=== PATIENT | male | born 1955 | race Hispanic/Latino ===

== ENCOUNTER 2018-11-05 13:10 | Inpatient (IN) | payer BC ==
[~2018-11-05] VITALS: Ht 172.7 cm; Wt 95.2 kg
[2018-11-05 14:19] LABS: BASOPHILS % (AUTO) 0.4 % (0.0-5.0); EOSINOPHILS % (AUTO) 0.1 % (0.0-8.0); HEMATOCRIT 45.3 % (42-54); LYMPHOCYTES % (AUTO) 6.2 % (21.0-51.0); MEAN CORPUSCULAR HEMOGLOBIN 29.8 pg (27.0-33.0); MEAN CORPUSCULAR HGB CONC 33.4 g/dL (32.0-36.0); MEAN CORPUSCULAR VOLUME 89.1 fL (79-99); MONOCYTES % (AUTO) 6.2 % (3.0-13.0); NEUTROPHILS % (AUTO) 87.1 % (40.0-77.0); PLATELET COUNT (AUTO) 307 K/uL (130-400); RED BLOOD CELL COUNT(AUTO) 5.09 MIL/uL (4.50-6.20); RED CELL DISTRIBUTION WIDTH 13.1 % (11.0-15.5); WHITE BLOOD COUNT (AUTO) 12.7 K/uL (4.8-10.8)
[2018-11-05] MEDS ORDERED: ZOSYN 3.375GM+NS 50ML 50 ML IV ONE (14:24)
[2018-11-05] MEDS ORDERED: VANCOMYCIN 1GM+NS 250ML 500 ML IV ONE (14:24)
[2018-11-05 14:43] LABS: ALBUMIN 3.3 g/dL (3.5-5.0); BILIRUBIN,TOTAL 0.9 mg/dL (0.2-1.0); CREATININE 1.9 mg/dL (0.5-1.5); POTASSIUM 4.2 mmol/L (3.5-5.1); TOTAL PROTEIN, SERUM 8.5 g/dL (6.0-8.3)
[2018-11-05 14:43] LABS: APPEARANCE,URINE Clear (CLEAR); BILIRUBIN,URINE Negative (NEGATIVE); COLOR,URINE Yellow (YELLOW); GLUCOSE, URINE (UA) >=1000 mg/dL (NEGATIVE); KETONES,URINE Trace mg/dL (NEGATIVE); LEUKOCYTE ESTERASE ,URINE Negative (NEGATIVE); NITRATE,URINE Negative (NEGATIVE); OCCULT BLOOD,URINE Negative (NEGATIVE); PROTEIN,URINE POS 1+ mg/dL (NEGATIVE)
[2018-11-05 15:00] LABS: BACTERIA,URINE Rare /HPF (None Seen); MUCUS,URINE Few LPF (None Seen); SQUAMOUS EPITHELIAL CELL,UR 0-2 /HPF (0-2)
[2018-11-05] MEDS ORDERED: PHARMACY COMMUNICATION MISC SCH (15:30)
[2018-11-05] MEDS ORDERED: RENAL DOSE IV SCH (15:30)
[2018-11-05] MEDS ORDERED: ZOSYN 3.375GM+NS 50ML 50 ML IV SCH (16:00)
[2018-11-05] MEDS ORDERED: COMPOUND IV REFRIGERATED 1 EACH IVSOLN MISC PRN (17:00)
[2018-11-05] MEDS ORDERED: ACETAMINOPHEN EXTRA STRENGTH 500 MG TABLET ONE (20:33)
[2018-11-05] MEDS: ZOSYN 3.375GM+NS 50ML 50 ML IV SCH (21:00)
[2018-11-05 21:20] VITALS: BP 167/72
[2018-11-05] MEDS ORDERED: HYDRALAZINE HCL 20 MG/ML VIAL IV PRN (22:00)
[2018-11-05] MEDS ORDERED: HYDRALAZINE HCL 20 MG/ML VIAL ONE (22:03)
[2018-11-05] MEDS ORDERED: ACETAMINOPHEN 325 MG TAB PO PRN (22:15)
[2018-11-06] VITALS (23 sets, daily range): BP systolic 103–147; BP diastolic 61–97
[2018-11-06] MEDS ORDERED: AMLO5TAB9 PO (02:42)
[2018-11-06] MEDS ORDERED: LISI40TA4 PO (02:42)
[2018-11-06] MEDS ORDERED: SITA1TAB6 PO (02:42)
[2018-11-06] MEDS ORDERED: LOVA20TA3 PO (02:42)
[2018-11-06] MEDS: ZOSYN 3.375GM+NS 50ML 50 ML IV SCH ×3 (04:39→20:52)
[2018-11-06 05:48] LABS: HEMATOCRIT 40.9 % (42-54); MEAN CORPUSCULAR HEMOGLOBIN 30.2 pg (27.0-33.0); MEAN CORPUSCULAR HGB CONC 34.1 g/dL (32.0-36.0); MEAN CORPUSCULAR VOLUME 88.6 fL (79-99); PLATELET COUNT (AUTO) 315 K/uL (130-400); RED BLOOD CELL COUNT(AUTO) 4.62 MIL/uL (4.50-6.20); RED CELL DISTRIBUTION WIDTH 13.5 % (11.0-15.5); WHITE BLOOD COUNT (AUTO) 11.5 K/uL (4.8-10.8)
[2018-11-06 06:02] LABS: BASOPHILS % (MANUAL) 1 % (0-2); LYMPHOCYTES % (MANUAL) 13 % (22-44); MONOCYTES % (MANUAL) 10 % (2-9); SEGMENTED NEUTROPHILS % 76 % (40-70)
[2018-11-06 06:03] LABS: MAN.DIFF COMMENT-IMPRESSION MANUAL DIFFERENTIAL
[2018-11-06 06:11] LABS: CREATININE 1.6 mg/dL (0.5-1.5)
[2018-11-06] MEDS: INSULIN HUMULIN R 100 UNIT/ML 3ML SQ SCH ×4 (06:18→20:47)
[2018-11-06] MEDS ORDERED: MIDAZOLAM HCL 1 MG/ML 2ML VIAL ONE ×2 (07:55→08:24)
[2018-11-06] MEDS ORDERED: FENTANYL CITRATE PF 50 MCG/1 ML 2ML VIAL ONE (07:55)
[2018-11-06] MEDS ORDERED: BUPIVACAINE/PF 0.5% 30ML VIAL ONE (07:56)
[2018-11-06] MEDS ORDERED: LIDOCAINE HCL 1% 20 ML VIAL ONE (07:56)
[2018-11-06] MEDS ORDERED: VANCOMYCIN 1.25 GM in SODIUM CHLORIDE 0.9% 250 ML IV SCH (09:00)
--- NOTE | 2018-11-06 11:50 | NUR ---
paged dr. maxwell for the consult through answering service.
[2018-11-06] MEDS ORDERED: DIPH,PERTUSS(ACELL),TET VAC/PF 0.5 ML VIAL IM ONE (12:00)
--- NOTE | 2018-11-06 18:36 | NUR ---
D/C PLAN CM spoke to pt regarding d/c planning. Pt is ind. and lives alone. Denies any having any home health or provider services. CM explained possible need for shelter IV abx and wound care. Explained that MD may recommend placement at a facility. Member verbalized understanding and states he is agreeable to placement if ordered. Plan for now is LTAC vs SNF/rehab. CM to f/u. Addendum: 11/06/18 at 1838 by MOO RICHTER CM Amended: Links added.
[2018-11-06] MEDS: MORPHINE SULFATE 2 MG/ML 1ML SYG IVP PRN (18:44)
[2018-11-07] MEDS: MORPHINE SULFATE 2 MG/ML 1ML SYG IVP PRN ×3 (01:02→18:28)
[2018-11-07 03:00] VITALS: BP 131/71
[2018-11-07] MEDS: ZOSYN 3.375GM+NS 50ML 50 ML IV SCH ×3 (04:42→20:56)
[2018-11-07] MEDS: INSULIN HUMULIN R 100 UNIT/ML 3ML SQ SCH ×4 (06:09→21:07)
[2018-11-07 06:25] LABS: HEMATOCRIT 40.9 % (42-54); MEAN CORPUSCULAR HEMOGLOBIN 29.9 pg (27.0-33.0); MEAN CORPUSCULAR HGB CONC 33.3 g/dL (32.0-36.0); MEAN CORPUSCULAR VOLUME 89.9 fL (79-99); PLATELET COUNT (AUTO) 306 K/uL (130-400); RED BLOOD CELL COUNT(AUTO) 4.55 MIL/uL (4.50-6.20); RED CELL DISTRIBUTION WIDTH 13.3 % (11.0-15.5); WHITE BLOOD COUNT (AUTO) 11.8 K/uL (4.8-10.8)
[2018-11-07 06:51] LABS: CREATININE 1.6 mg/dL (0.5-1.5); POTASSIUM 4.2 mmol/L (3.5-5.1)
[2018-11-07 07:00] VITALS: BP 123/76
[2018-11-07 08:29] LABS: BAND NEUTROPHILS % (MANUAL) 1 % (0-2); LYMPHOCYTES % (MANUAL) 5 % (22-44); MAN.DIFF COMMENT-IMPRESSION MANUAL DIFFERENTIAL; MONOCYTES % (MANUAL) 7 % (2-9); PLATELET MORPHOLOGY COMMENT ADEQUATE; SEGMENTED NEUTROPHILS % 87 % (40-70)
[2018-11-07] MEDS ORDERED: VANCOMYCIN 1.25 GM in SODIUM CHLORIDE 0.9% 250 ML IV SCH (10:45)
[2018-11-07 11:00] VITALS: BP 140/82
[2018-11-07] MEDS ORDERED: VANCOMYCIN PROTOCOL PER PHARMACY IV SCH (13:15)
[2018-11-07] MEDS ORDERED: ENOXAPARIN SODIUM 30 MG/0.3 ML SQ SCH (14:15)
[2018-11-07 16:00] VITALS: BP 152/80
--- NOTE | 2018-11-07 16:53 | NUR ---
DR. ARNOLD ROUNDED AND SAW PATIENT. DISCUSSED THE PLAN OF CARE. HE VERBALIZED THAT HE WILL PUT ORDER FOR PERIPHERAL ANGIOGRAM.
[2018-11-07 20:00] VITALS: BP 148/70
[2018-11-07] MEDS: VANCOMYCIN 500MG+NS 100ML 100 ML IV SCH (20:56)
[2018-11-08] VITALS (16 sets, daily range): BP systolic 112–148; BP diastolic 61–74
[2018-11-08] MEDS: ZOSYN 3.375GM+NS 50ML 50 ML IV SCH ×3 (04:45→21:29)
[2018-11-08 05:36] LABS: BASOPHILS % (AUTO) 0.3 % (0.0-5.0); EOSINOPHILS % (AUTO) 0.2 % (0.0-8.0); HEMATOCRIT 40.9 % (42-54); LYMPHOCYTES % (AUTO) 6.5 % (21.0-51.0); MEAN CORPUSCULAR HEMOGLOBIN 30.1 pg (27.0-33.0); MEAN CORPUSCULAR HGB CONC 33.8 g/dL (32.0-36.0); MEAN CORPUSCULAR VOLUME 89.1 fL (79-99); MONOCYTES % (AUTO) 8.5 % (3.0-13.0); NEUTROPHILS % (AUTO) 84.5 % (40.0-77.0); NUCLEATED RED BLOOD CELLS 0.2 % (0.0-0.19); PLATELET COUNT (AUTO) 362 K/uL (130-400); RED BLOOD CELL COUNT(AUTO) 4.59 MIL/uL (4.50-6.20); RED CELL DISTRIBUTION WIDTH 13.2 % (11.0-15.5); WHITE BLOOD COUNT (AUTO) 13.8 K/uL (4.8-10.8)
[2018-11-08 05:52] LABS: INR 1.05 (0.85-1.15)
[2018-11-08 06:04] LABS: CHLORIDE 96 mmol/L (101-111); CREATINE KINASE, TOTAL 53 U/L (21-232); CREATININE 1.5 mg/dL (0.5-1.5); GLOMERULAR FILTR. RATE CALC 50 mL/min (>60); GLUCOSE,RANDOM 145 mg/dL (70-105); MYOGLOBIN 89 ng/mL (10-92); POTASSIUM 4.5 mmol/L (3.5-5.1); SODIUM SERUM 130 mmol/L (136-145); TROPONIN I < 0.04 ng/mL (0.00-0.06); UREA NITROGEN, BLOOD 32 mg/dL (7-18)
[2018-11-08 06:15] LABS: CARBON DIOXIDE 24 mmol/L (21-32)
[2018-11-08] MEDS: INSULIN HUMULIN R 100 UNIT/ML 3ML SQ SCH ×4 (06:53→21:00)
[2018-11-08] MEDS: ENOXAPARIN SODIUM 30 MG/0.3 ML SQ SCH (09:00)
--- NOTE | 2018-11-08 09:30 | NUR ---
temp 100.8, pt with multiple blankets removed will recheck temp
[2018-11-08] MEDS: VANCOMYCIN 500MG+NS 100ML 100 ML IV SCH ×2 (09:42→21:29)
[2018-11-08] MEDS: FAMOTIDINE 20MG TAB 20 MG TAB PO SCH (09:43)
[2018-11-08] MEDS: ASPIRIN 81MG TAB.CHEW PO SCH (09:44)
[2018-11-08] MEDS: LISINOPRIL 40 MG TABLET PO SCH (09:44)
[2018-11-08] MEDS: AMLODIPINE BESYLATE 5 MG TAB PO SCH (09:44)
--- NOTE | 2018-11-08 10:00 | NUR ---
temp 99.9
[2018-11-08] MEDS ORDERED: SODIUM CHLORIDE 0.9% 1000ML 1,000 ML IV SCH ×2 (12:00→18:40)
[2018-11-08] MEDS: MORPHINE SULFATE 2 MG/ML 1ML SYG IVP PRN (13:25)
[2018-11-08] MEDS ORDERED: LIDOCAINE HCL 2% 20ML ONE (15:41)
[2018-11-08] MEDS ORDERED: IODIXANOL 320 MG/ML 100 ML VIAL ONE (15:41)
[2018-11-08] MEDS ORDERED: NITROGLYCERIN 5 MG/ML 10 ML VIAL IV ONE (15:41)
[2018-11-08] MEDS ORDERED: MIDAZOLAM HCL 1 MG/ML 2ML VIAL ONE (15:41)
[2018-11-08] MEDS ORDERED: HEPARIN SODIUM 1000UNIT/ML 10ML VIAL ONE (15:41)
[2018-11-08] MEDS ORDERED: FENTANYL CITRATE PF 50 MCG/1 ML 2ML VIAL ONE (16:24)
[2018-11-08] MEDS ORDERED: CLOPIDOGREL BISULFATE 300 MG TAB ONE (16:55)
[2018-11-08] MEDS ORDERED: NICARDIPINE HCL 25 MG/10 ML ML IV ONE (17:40)
[2018-11-08] MEDS ORDERED: MORPHINE SULFATE 2 MG/ML 1ML SYG IVP PRN (20:00)
[2018-11-08] MEDS: Lovastatin 20 MG PO SCH (21:00)
[2018-11-08] MEDS ORDERED: VANCOMYCIN 1GM+NS 250ML 250 ML IV ONE (22:00)
[2018-11-09] VITALS (8 sets, daily range): BP systolic 113–149; BP diastolic 63–80
--- NOTE | 2018-11-09 | NUR ---
WOUND VAC DRESSING CHANGE: Wound vac present to right foot wound. Dressing changed with moderate amount of serosanguineous drainage. 150ml of serosanguineous drainage obtained in the wound vac container. Cleansed with sterile NS using aseptic tech. 1 black foam applied per dressing order. Photo taken and attached to chart. Wound is 6cm long, 4.5 cm wide and 4cm deep. Wound has pink granulation tissue present on borders. Set on slow continuous mode at 125 mmHg. Procedure tolerated well and verbalized mild discomfort only. No untoward incident happened.
[2018-11-09] MEDS: ZOSYN 3.375GM+NS 50ML 50 ML IV SCH ×3 (04:30→21:16)
[2018-11-09 05:32] LABS: BASOPHILS % (AUTO) 0.2 % (0.0-5.0); EOSINOPHILS % (AUTO) 0.1 % (0.0-8.0); HEMATOCRIT 36.7 % (42-54); LYMPHOCYTES % (AUTO) 6.3 % (21.0-51.0); MEAN CORPUSCULAR HGB CONC 33.2 g/dL (32.0-36.0); MEAN CORPUSCULAR VOLUME 90.4 fL (79-99); MONOCYTES % (AUTO) 8.5 % (3.0-13.0); NEUTROPHILS % (AUTO) 84.9 % (40.0-77.0); PLATELET COUNT (AUTO) 331 K/uL (130-400); RED BLOOD CELL COUNT(AUTO) 4.06 MIL/uL (4.50-6.20); RED CELL DISTRIBUTION WIDTH 13.8 % (11.0-15.5); WHITE BLOOD COUNT (AUTO) 13.3 K/uL (4.8-10.8)
[2018-11-09 05:49] LABS: HEMOGLOBIN A1C 10.1 % (4.0-6.0)
[2018-11-09 05:50] LABS: CREATININE 1.5 mg/dL (0.5-1.5); POTASSIUM 4.2 mmol/L (3.5-5.1)
[2018-11-09 06:04] LABS: CRP QUANTITATIVE 342.9 mg/L (0.00-9.0)
[2018-11-09 06:43] LABS: ERYTHROCYTE SEDIMENTATION RATE 115 MM/HR (0-20)
[2018-11-09] MEDS: INSULIN HUMULIN R 100 UNIT/ML 3ML SQ SCH ×4 (07:00→21:16)
--- NOTE | 2018-11-09 07:00 | NUR ---
Dr. Sahu rounded: Seen, examined and talked to the pt. Dining Room Helper showed the wound photo to MD. No new orders made.
[2018-11-09] MEDS: AMLODIPINE BESYLATE 5 MG TAB PO SCH (10:04)
[2018-11-09] MEDS: FAMOTIDINE 20MG TAB 20 MG TAB PO SCH (10:04)
[2018-11-09] MEDS: LISINOPRIL 40 MG TABLET PO SCH (10:04)
[2018-11-09] MEDS: CLOPIDOGREL BISULFATE 75 MG TAB PO SCH (10:04)
[2018-11-09] MEDS: ASPIRIN 81MG TAB.CHEW PO SCH (10:04)
[2018-11-09] MEDS: ENOXAPARIN SODIUM 30 MG/0.3 ML SQ SCH (10:06)
--- NOTE | 2018-11-09 10:10 | NUR ---
DR ARRIETA IN TO SEE PATIENT ORDERS RECEIVED FOR STEPHANIE-MEDROL 40 MG IV DAILY FOR 2 DAYS
--- NOTE | 2018-11-09 11:41 | NUR ---
CM Note: [facility] pending ins auth and acceptance CM met with pt discussed Md recommendations for LTAC, pt will need abx iv, woundcare, and PT. Pt agreeable, KYLIE signed for [facility]. Faxed order and clinicals, confirmation received. Spoke to Judy camara/Mary, will come eval pt. Pt pending ins auth and acceptance. MOT semi-filled pending to be completed once approved. EMS arranged and faxed for today, primary nurse to call [facility] once pt ready to DC. Primary nurse aware. CM to cont to follow up.
[2018-11-09] MEDS: METHYLPREDNISOLONE SOD SUCC 40MG/ML 1ML IVP SCH (12:11)
[2018-11-09] MEDS: VANCOMYCIN 750MG + NS 250 ML IV SCH ×2 (12:12)
[2018-11-09] MEDS: HYDROMORPHONE 1 MG/1 ML AMP IVP PRN (12:51)
[2018-11-09] MEDS: Lovastatin 20 MG PO SCH (21:00)
[2018-11-10] MEDS: VANCOMYCIN 750MG + NS 250 ML IV SCH ×4 (01:25→14:50)
[2018-11-10 04:00] VITALS: BP 125/65
[2018-11-10] MEDS: ZOSYN 3.375GM+NS 50ML 50 ML IV SCH ×3 (04:20→21:15)
[2018-11-10 05:55] LABS: HEMATOCRIT 36.9 % (42-54); MEAN CORPUSCULAR HEMOGLOBIN 30.2 pg (27.0-33.0); MEAN CORPUSCULAR HGB CONC 33.5 g/dL (32.0-36.0); MEAN CORPUSCULAR VOLUME 90.1 fL (79-99); PLATELET COUNT (AUTO) 419 K/uL (130-400); RED CELL DISTRIBUTION WIDTH 13.7 % (11.0-15.5); WHITE BLOOD COUNT (AUTO) 16.8 K/uL (4.8-10.8)
[2018-11-10 06:20] LABS: CREATININE 1.5 mg/dL (0.5-1.5); POTASSIUM 4.4 mmol/L (3.5-5.1)
[2018-11-10] MEDS: INSULIN HUMULIN R 100 UNIT/ML 3ML SQ SCH ×4 (06:23→21:17)
[2018-11-10 08:00] VITALS: BP 121/63
[2018-11-10] MEDS: LISINOPRIL 40 MG TABLET PO SCH (09:38)
[2018-11-10] MEDS: AMLODIPINE BESYLATE 5 MG TAB PO SCH (09:38)
[2018-11-10] MEDS: ASPIRIN 81MG TAB.CHEW PO SCH (09:38)
[2018-11-10] MEDS: METHYLPREDNISOLONE SOD SUCC 40MG/ML 1ML IVP SCH (09:38)
[2018-11-10] MEDS: CLOPIDOGREL BISULFATE 75 MG TAB PO SCH (09:38)
[2018-11-10] MEDS: FAMOTIDINE 20MG TAB 20 MG TAB PO SCH (09:38)
[2018-11-10] MEDS: ENOXAPARIN SODIUM 30 MG/0.3 ML SQ SCH (09:39)
[2018-11-10] MEDS: HYDROCODONE/ACETAMINOPHEN 5/325 MG TAB PO PRN (09:46)
--- NOTE | 2018-11-10 10:08 | NUR ---
BERT Note: [facility] pending ins auth Spoke to Judy Shah, updated clinicals received, pt pending ins auth at this time. Primary nurse aware. CM to cont to follow up.
[2018-11-10 12:00] VITALS: BP 125/64
[2018-11-10 16:00] VITALS: BP 120/61
--- NOTE | 2018-11-10 16:21 | NUR ---
RD NOTIFICATION: DX: CHRONIC OSTEOMYELITIS TO RIGHT FOOT. HX: DM, HYPERLIPIDEMIA, OBESITY, HTN. DIET: HEART HEALTHY. PO INTAKE 100% AND HAS GREAT APPETITE PER PT. S/P RIGHT FOOD TMA. LBM: 11/09. PT IS COMPLIANT WITH MEDICATIONS AND IS TRYING TO ADJUST HIS DIET SO HE can CONTROL HIS BG BETTER. PT IS NOT A PICKY EATER AND HAS BEEN MAKING SMALL CHANGES RECENTLY AND IS MORE CAREFUL ABOUT WHAT HE EATS. PT IS MOTIVATED TO EAT BETTER BECAUSE HE WANTS TO RECOVER SOON. RD PROVIDED DIABETES DIET AND NUTRITION EDUCATION MATERIALS AND REVIEWED THEM WITH THE PT. PT VERBALIZED UNDERSTANDING AND ASKED QUESTIONS. RD RECOMMENDS TO CONTINUE CURRENT DIET, ADD 75GMCCD TO DIET ORDER. RD PROVIDED DM DIET AND NUTRITION EDUCATION MATERIAL. RD WILL CONTINUE TO MONITOR AND FOLLOW UP NEEDED. Addendum: 11/10/18 at [address] RD Amended: Links added.
--- NOTE | 2018-11-10 16:23 | NUR ---
DIET EDUCATION PT IS NOT A PICKY EATER AND HAS BEEN MAKING SMALL CHANGES RECENTLY AND IS MORE CAREFUL ABOUT WHAT HE EATS. PT IS MOTIVATED TO EAT BETTER BECAUSE HE WANTS TO RECOVER SOON. BELLE PROVIDED DIABETES DIET AND NUTRITION EDUCATION MATERIALS AND REVIEWED THEM WITH THE PT. PT VERBALIZED UNDERSTANDING AND ASKED QUESTIONS. Addendum: 11/10/18 at [address] RD Amended: Links added.
[2018-11-10] MEDS: FLUCONAZOLE 200 MG/NS 100 ML 100 ML IV SCH (17:21)
[2018-11-10 19:00] VITALS: BP 127/76
[2018-11-10] MEDS: Lovastatin 20 MG PO SCH (20:45)
[2018-11-10 23:00] VITALS: BP 130/71
[2018-11-11] MEDS: VANCOMYCIN 750MG + NS 250 ML IV SCH ×4 (01:36→11:49)
[2018-11-11 03:00] VITALS: BP 134/68
[2018-11-11] MEDS: ZOSYN 3.375GM+NS 50ML 50 ML IV SCH ×3 (05:15→21:25)
[2018-11-11 05:44] LABS: BASOPHILS % (AUTO) 0.1 % (0.0-5.0); EOSINOPHILS % (AUTO) 0.1 % (0.0-8.0); HEMATOCRIT 38.4 % (42-54); LYMPHOCYTES % (AUTO) 4.6 % (21.0-51.0); MEAN CORPUSCULAR HEMOGLOBIN 29.8 pg (27.0-33.0); MEAN CORPUSCULAR HGB CONC 33.1 g/dL (32.0-36.0); MEAN CORPUSCULAR VOLUME 90.3 fL (79-99); MONOCYTES % (AUTO) 4.4 % (3.0-13.0); NEUTROPHILS % (AUTO) 90.8 % (40.0-77.0); PLATELET COUNT (AUTO) 429 K/uL (130-400); RED BLOOD CELL COUNT(AUTO) 4.25 MIL/uL (4.50-6.20); RED CELL DISTRIBUTION WIDTH 13.8 % (11.0-15.5)
[2018-11-11 06:10] LABS: CREATININE 1.4 mg/dL (0.5-1.5); MAGNESIUM 2.5 mg/dL (1.80-2.40); PHOSPHORUS 2.9 mg/dL (2.5-4.9); POTASSIUM 4.1 mmol/L (3.5-5.1)
[2018-11-11 06:27] LABS: CRP QUANTITATIVE 146.1 mg/L (0.00-9.0)
[2018-11-11] MEDS: INSULIN HUMULIN R 100 UNIT/ML 3ML SQ SCH ×4 (06:32→21:29)
[2018-11-11 07:14] LABS: ERYTHROCYTE SEDIMENTATION RATE 112 MM/HR (0-20)
[2018-11-11] MEDS: ENOXAPARIN SODIUM 30 MG/0.3 ML SQ SCH (07:53)
[2018-11-11] MEDS: ASPIRIN 81MG TAB.CHEW PO SCH (07:53)
[2018-11-11] MEDS: CLOPIDOGREL BISULFATE 75 MG TAB PO SCH (07:53)
[2018-11-11] MEDS: FAMOTIDINE 20MG TAB 20 MG TAB PO SCH (07:53)
[2018-11-11] MEDS: LISINOPRIL 40 MG TABLET PO SCH (07:54)
[2018-11-11] MEDS: AMLODIPINE BESYLATE 5 MG TAB PO SCH (07:57)
[2018-11-11 08:13] VITALS: BP 138/72
[2018-11-11 11:52] VITALS: BP 129/89
--- NOTE | 2018-11-11 13:00 | NUR ---
CM Note: [facility] ins auth and acceptance Spoke to Judy Shah, pt as ins auth and acceptance. MOT filled out, pending MD and house super to sign. EMS arranged and faxed, primary nurse to call [facility] once pt ready to DC. Primary nurse aware. CM to cont to follow up.
[2018-11-11] MEDS: FLUCONAZOLE 200 MG/NS 100 ML 100 ML IV SCH (13:19)
[2018-11-11 16:00] VITALS: BP 124/54
[2018-11-11 20:00] VITALS: BP 129/64
[2018-11-11] MEDS: Lovastatin 20 MG PO SCH (21:00)
[2018-11-12] VITALS (18 sets, daily range): BP systolic 107–147; BP diastolic 50–76
[2018-11-12] MEDS: VANCOMYCIN 750MG + NS 250 ML IV SCH ×4 (00:49→11:27)
[2018-11-12 04:39] LABS: HEMATOCRIT 38.4 % (42-54); MEAN CORPUSCULAR HEMOGLOBIN 29.9 pg (27.0-33.0); MEAN CORPUSCULAR HGB CONC 34.1 g/dL (32.0-36.0); MEAN CORPUSCULAR VOLUME 87.7 fL (79-99); PLATELET COUNT (AUTO) 478 K/uL (130-400); RED BLOOD CELL COUNT(AUTO) 4.38 MIL/uL (4.50-6.20); RED CELL DISTRIBUTION WIDTH 13.8 % (11.0-15.5)
[2018-11-12 04:50] LABS: INR 1.09 (0.85-1.15); PROTHROMBIN TIME 11.4 SEC (9.6-11.6)
[2018-11-12 05:10] LABS: CREATININE 1.1 mg/dL (0.5-1.5)
[2018-11-12] MEDS: ZOSYN 3.375GM+NS 50ML 50 ML IV SCH ×3 (05:58→21:27)
[2018-11-12] MEDS ORDERED: DILTIAZEM 125MG+100 ML NS 125 ML IV SCH (06:15)
[2018-11-12] MEDS: INSULIN HUMULIN R 100 UNIT/ML 3ML SQ SCH ×3 (08:00→21:23)
[2018-11-12] MEDS: HYDROCODONE/ACETAMINOPHEN 5/325 MG TAB PO PRN (08:01)
[2018-11-12] MEDS: CLOPIDOGREL BISULFATE 75 MG TAB PO SCH (08:44)
[2018-11-12] MEDS: ENOXAPARIN SODIUM 30 MG/0.3 ML SQ SCH (08:45)
[2018-11-12] MEDS: ASPIRIN 81MG TAB.CHEW PO SCH (08:45)
[2018-11-12] MEDS: FAMOTIDINE 20MG TAB 20 MG TAB PO SCH (09:10)
[2018-11-12] MEDS: AMLODIPINE BESYLATE 5 MG TAB PO SCH (09:10)
[2018-11-12] MEDS: LISINOPRIL 40 MG TABLET PO SCH (09:10)
[2018-11-12] MEDS: FLUCONAZOLE 200 MG/NS 100 ML 100 ML IV SCH (14:19)
[2018-11-12] MEDS ORDERED: LIDOCAINE PF 2% 5ML ABBOJECT ONE (15:48)
[2018-11-12] MEDS ORDERED: MIDAZOLAM HCL 1 MG/ML 2ML VIAL ONE (15:48)
[2018-11-12] MEDS ORDERED: FENTANYL CITRATE PF 50 MCG/1 ML 2ML VIAL ONE (15:48)
[2018-11-12] MEDS ORDERED: PROPOFOL 10 MG/ML 20ML VIAL IV ONE (15:48)
[2018-11-12] MEDS ORDERED: LIDOCAINE HCL 1% 20 ML VIAL ONE (15:51)
[2018-11-12] MEDS ORDERED: BUPIVACAINE/PF 0.5% 30ML VIAL ONE (15:51)
[2018-11-12] MEDS ORDERED: MEPERIDINE-PF 25 MG/ML SYG ONE (18:00)
[2018-11-12] MEDS: Lovastatin 20 MG PO SCH (21:00)
[2018-11-12] MEDS: HYDROMORPHONE 1 MG/1 ML AMP IVP PRN (21:27)
[2018-11-13] VITALS (9 sets, daily range): BP systolic 120–152; BP diastolic 62–82
[2018-11-13] MEDS: VANCOMYCIN 750MG + NS 250 ML IV SCH ×4 (01:01→12:07)
[2018-11-13 04:20] LABS: BASOPHILS % (AUTO) 0.5 % (0.0-5.0); EOSINOPHILS % (AUTO) 2.3 % (0.0-8.0); LYMPHOCYTES % (AUTO) 13.8 % (21.0-51.0); MEAN CORPUSCULAR HEMOGLOBIN 30.2 pg (27.0-33.0); MEAN CORPUSCULAR HGB CONC 33.8 g/dL (32.0-36.0); MEAN CORPUSCULAR VOLUME 89.5 fL (79-99); MONOCYTES % (AUTO) 10.5 % (3.0-13.0); NEUTROPHILS % (AUTO) 72.9 % (40.0-77.0); NUCLEATED RED BLOOD CELLS 0.1 % (0.0-0.19); PLATELET COUNT (AUTO) 484 K/uL (130-400); RED BLOOD CELL COUNT(AUTO) 4.36 MIL/uL (4.50-6.20); RED CELL DISTRIBUTION WIDTH 13.6 % (11.0-15.5); WHITE BLOOD COUNT (AUTO) 8.4 K/uL (4.8-10.8)
[2018-11-13] MEDS: ZOSYN 3.375GM+NS 50ML 50 ML IV SCH ×3 (04:33→20:38)
[2018-11-13] MEDS: HYDROMORPHONE 1 MG/1 ML AMP IVP PRN (04:36)
[2018-11-13 04:47] LABS: CREATININE 1.3 mg/dL (0.5-1.5); CRP QUANTITATIVE 64.8 mg/L (0.00-9.0); MAGNESIUM 1.6 mg/dL (1.80-2.40); PHOSPHORUS 3.7 mg/dL (2.5-4.9); POTASSIUM 4.5 mmol/L (3.5-5.1)
[2018-11-13 05:37] LABS: ERYTHROCYTE SEDIMENTATION RATE 72 MM/HR (0-20)
[2018-11-13] MEDS: INSULIN HUMULIN R 100 UNIT/ML 3ML SQ SCH ×4 (06:51→22:27)
[2018-11-13] MEDS: ASPIRIN 81MG TAB.CHEW PO SCH (10:22)
[2018-11-13] MEDS: AMLODIPINE BESYLATE 5 MG TAB PO SCH (10:22)
[2018-11-13] MEDS: FAMOTIDINE 20MG TAB 20 MG TAB PO SCH (10:22)
[2018-11-13] MEDS: ENOXAPARIN SODIUM 30 MG/0.3 ML SQ SCH (10:22)
[2018-11-13] MEDS: LISINOPRIL 40 MG TABLET PO SCH (10:22)
[2018-11-13] MEDS: METRONIDAZOLE 500 MG TABLET PO SCH ×2 (10:22→17:48)
[2018-11-13] MEDS: CLOPIDOGREL BISULFATE 75 MG TAB PO SCH (10:23)
[2018-11-13] MEDS: HYDROCODONE/ACETAMINOPHEN 5/325 MG TAB PO PRN ×2 (12:06→20:41)
[2018-11-13] MEDS: FLUCONAZOLE 200 MG/NS 100 ML 100 ML IV SCH (13:55)
[2018-11-13] MEDS ORDERED: MAGNESIUM 2GM PREMIX 50ML 50 ML IV PRN (19:30)
[2018-11-13] MEDS: Lovastatin 20 MG PO SCH (20:15)
[2018-11-14] MEDS: VANCOMYCIN 750MG + NS 250 ML IV SCH ×4 (00:47→13:11)
[2018-11-14] MEDS: METRONIDAZOLE 500 MG TABLET PO SCH ×2 (01:56→10:02)
[2018-11-14 03:00] VITALS: BP 142/77
[2018-11-14 06:20] LABS: HEMATOCRIT 37.3 % (42-54); MEAN CORPUSCULAR HEMOGLOBIN 29.8 pg (27.0-33.0); MEAN CORPUSCULAR HGB CONC 33.2 g/dL (32.0-36.0); MEAN CORPUSCULAR VOLUME 89.7 fL (79-99); PLATELET COUNT (AUTO) 441 K/uL (130-400); RED BLOOD CELL COUNT(AUTO) 4.16 MIL/uL (4.50-6.20); RED CELL DISTRIBUTION WIDTH 13.9 % (11.0-15.5); WHITE BLOOD COUNT (AUTO) 11.5 K/uL (4.8-10.8)
[2018-11-14] MEDS: ZOSYN 3.375GM+NS 50ML 50 ML IV SCH ×2 (06:24→13:39)
[2018-11-14 06:27] LABS: CREATININE 1.2 mg/dL (0.5-1.5); POTASSIUM 4.1 mmol/L (3.5-5.1)
[2018-11-14] MEDS: INSULIN HUMULIN R 100 UNIT/ML 3ML SQ SCH ×2 (06:27→13:19)
[2018-11-14 08:00] VITALS: BP 140/73
[2018-11-14] MEDS: AMLODIPINE BESYLATE 5 MG TAB PO SCH (09:46)
[2018-11-14] MEDS: CLOPIDOGREL BISULFATE 75 MG TAB PO SCH (09:47)
[2018-11-14] MEDS: FAMOTIDINE 20MG TAB 20 MG TAB PO SCH (09:47)
[2018-11-14] MEDS: LISINOPRIL 40 MG TABLET PO SCH (09:47)
[2018-11-14] MEDS: ASPIRIN 81MG TAB.CHEW PO SCH (09:47)
[2018-11-14] MEDS: ENOXAPARIN SODIUM 30 MG/0.3 ML SQ SCH (09:48)
[2018-11-14 11:00] VITALS: BP 141/73
--- NOTE | 2018-11-14 11:00 | NUR ---
Mary: Spoke jax Kim this am, updated her that plan was for dc today. She mentions ins auth still good for today. Primary Nurse-Emy informed. Informed Emy that MOT was still pending Md and lease administration supervisor signatures.
--- NOTE | 2018-11-14 13:44 | NUR ---
SET[employer] Dr. Sahu came and changed dressing to right foot. Stated patient is clear to go to [facility] and that he will follow up with patient as an outpatient.
--- NOTE | 2018-11-14 14:41 | NUR ---
MEDICATION RECONCILIATION Faxed to [facility] and confirmed received with information receptionist.
--- NOTE | 2018-11-14 14:42 | NUR ---
REPORT TO MARY Called Mary. Spoke to timber cutter. Stated nurse taking report will be Natalia but she will call me back and that charge nurse won't take report because their preference is for primary nurse to take report. Tello SkeltonOverlay Operator notified.
--- NOTE | 2018-11-14 15:13 | NUR ---
DISCHARGE Received call back from Mary. Gave report to Natalia Morgan RN. Called EMS. Ambulance pending to arrive.
[2018-11-14] MEDS: FLUCONAZOLE 200 MG/NS 100 ML 100 ML IV SCH (15:17)
== END 2018-11-14 17:15 | DRG 853 ==
LOC: EDH 13:10 → EDHIP 15:14 → 3CH 20:49
PROVIDERS: ADMIT Internal Medicine; ATTEND Internal Medicine
PROC: 0JBQ0ZZ Excision of Right Foot Subcutaneous Tissue and Fascia, Open Approach (ICD-10-PCS; 2018-11-05)
PROC: 0Y6M0Z0 Detachment at Right Foot, Complete, Open Approach (ICD-10-PCS; principal; 2018-11-06 08:06)
PROC: 04CR3ZZ Extirpation of Matter from Right Posterior Tibial Artery, Percutaneous Approach (ICD-10-PCS; 2018-11-08)
PROC: 047T3ZZ Dilation of Right Peroneal Artery, Percutaneous Approach (ICD-10-PCS; 2018-11-08)
PROC: 047P3ZZ Dilation of Right Anterior Tibial Artery, Percutaneous Approach (ICD-10-PCS; 2018-11-08)
PROC: B41F1ZZ Fluoroscopy of Right Lower Extremity Arteries using Low Osmolar Contrast (ICD-10-PCS; 2018-11-08)
PROC: 0QBN0ZZ Excision of Right Metatarsal, Open Approach (ICD-10-PCS; 2018-11-12)
DX: A41.9 Sepsis, unspecified organism (principal); M72.6 Necrotizing fasciitis; M86.9 Osteomyelitis, unspecified; L03.115 Cellulitis of right lower limb; E87.1 Hypo-osmolality and hyponatremia; N17.9 Acute kidney failure, unspecified; E11.52 Type 2 diabetes mellitus with diabetic peripheral angiopathy with gangrene; I96 Gangrene, not elsewhere classified; E11.621 Type 2 diabetes mellitus with foot ulcer; E11.69 Type 2 diabetes mellitus with other specified complication; Z68.31 Body mass index [BMI] 31.0-31.9, adult; N18.3 Chronic kidney disease, stage 3 (moderate); E11.22 Type 2 diabetes mellitus with diabetic chronic kidney disease; E11.628 Type 2 diabetes mellitus with other skin complications; L97.529 Non-pressure chronic ulcer of other part of left foot with unspecified severity; L97.519 Non-pressure chronic ulcer of other part of right foot with unspecified severity; E66.9 Obesity, unspecified; E78.5 Hyperlipidemia, unspecified; E78.00 Pure hypercholesterolemia, unspecified; I12.9 Hypertensive chronic kidney disease with stage 1 through stage 4 chronic kidney disease, or unspecified chronic kidney disease; K29.70 Gastritis, unspecified, without bleeding; M10.9 Gout, unspecified; Z82.49 Family history of ischemic heart disease and other diseases of the circulatory system; Z83.3 Family history of diabetes mellitus; Z89.431 Acquired absence of right foot
CPT/HCPCS: 36415; 37229; 37232; 71046; 73630; 73718; 75710; 80048; 80053; 80061; 80202; 81001; 82040; 82550; 82948; 83036; 83605; 83735; 83874; 84100; 84145; 84484; 85025; 85027; 85610; 85651; 85730; 86140; 87040; 87070; 87076; 87088; 87205; 88305; 90715; 93005; 93925; 97039; 99156; 99157; C1725; C1769; C1893; C1894; G0378; J0360; J1170; J1450; J1644; J1650; J1815; J2001; J2175; J2250; J2543; J2704; J2920; J3010; J3370; J3475; J3490; J7030; Q9967

== ENCOUNTER → 2023-03-17 | Outpatient (CLI) | payer OTHER ==
[~2023-03-17] MED LIST: AMLO-258 PO; ASPI-1005 PO; FLUT1AER IH; FURO40TA7 PO; GLIM4TAB36 PO; INSU100I49 SQ; LOVA20TA3 PO; METO25TA6 PO; MONT-46 PO
== END | disposition home or self-care (01) ==
LOC: SHCH 12:12
PROVIDERS: ATTEND Internal Medicine Cardiovascular Disease
DX: I11.0 Hypertensive heart disease with heart failure (principal); I50.32 Chronic diastolic (congestive) heart failure; I08.0 Rheumatic disorders of both mitral and aortic valves; E11.9 Type 2 diabetes mellitus without complications; E78.5 Hyperlipidemia, unspecified
CPT/HCPCS: 93306